=== PATIENT | female | born 1975 | race Hispanic/Latino ===

== ENCOUNTER 2018-08-05 10:56 | Day surgery (SDC) | payer BC, SELFPAY ==
[2018-07-30 11:20] VITALS: BP 117/84; PULSE 66; RESP 16; TEMP 36.8; O2SAT 100; BMI 28.9
--- NOTE | 2018-07-30 11:53 | SDCEKG_ITS ---
Test Reason : Blood Pressure : / mmHG Vent. Rate : 065 BPM Atrial Rate : 065 BPM P-R Int : 134 ms QRS Dur : 082 ms QT Int : 406 ms P-R-T Axes : 033 006 026 degrees QTc Int : 422 ms Normal sinus rhythm Normal ECG Confirmed by HUDSON TODD, THO ([id number]), editor magazine RADHA MUNOZ ([id number]) on 08/04/2018 8:33:41 AM Referred By: Pan Ashby Confirmed By:THO TREVIÑO MD
[2018-07-30 12:20] LABS: Hematocrit 37.2 % (37-47); Hemoglobin 12.3 g/dl (12.0-15.0); Mean Corp Hgb Conc 33.1 g/gl (32-36); Mean Corpuscular Hgb 29.4 pg (27.0-32.0); Mean Corpuscular Volume 88.8 fL (81-99); Mean Platelet Vol. 10.7 fl (6.2-12.0); Platelet Count 359 K/mm3 (150-450); RBC Distribution Width CV 15.3 % (11.6-14.6); RBC Distribution Width SD 49.3 fl (35.1-43.9); Red Blood Count 4.19 M/mm3 (4.2-5.4); White Blood Count 6.2 K/mm3 (4.4-11.0)
[2018-07-30 12:21] LABS: Scan Indicated on CBC? Y/N NO
[2018-07-30 12:44] LABS: Anion Gap 8 (5-15); BUN 11 mg/dL (7-18); BUN/Creat Ratio 15.5 RATIO (10-20); Calcium,Total 8.7 mg/dL (8.5-10.1); Chloride 105 mmol/L (98-107); Creatinine, Serum 0.71 mg/dL (0.55-1.02); EST Glomerular Filtration Rate 96 mL/min (>60); Est Glom Filt Rate - Afr Amer 117 mL/min (>60); Estimated Creatinine Clearance 90.04 ml/min; Glucose 87 mg/dL (74-106); Potassium 3.9 mmol/L (3.5-5.1); Sodium Level 139 mmol/L (136-145)
[2018-08-05] MEDS: Cefazolin 2 GM in 0.9% Normal Saline 100 ML IV (07:00)
[2018-08-05 11:25] VITALS: BP 110/83; PULSE 73; RESP 16; TEMP 36.9; O2SAT 100; BMI 28.9
--- NOTE | 2018-08-05 13:00 | HERN_PTH ---
PATIENT: AGUSTIN BANG V LOC: [facility] [place] U#:[id number] AGE/SX: 43/F ROOM: RE08/05/[address]: Dr. Pan Ashby MD : [id number] BED: DIS: 08/05/2018 SPEC #: [id number] RECD: 08/05/18 14:50 STATUS: RISHI JERSON #: [id number] JOB: 08/05/18 13:[address]: Pan Ashby DEPT: SURGICAL PATHOLOGY RECD BY: Graham Garza ENTERED: 08/06/18 04:57 SP TYPE: Hernia OTHR DR: Dr. Fransisco Gonzalez MD Tissues: HERNIA Procedures: Surgery Specimen Level II HEADER OPERATION: Umbilical hernia repair, mesh, poss lap inspection/assistance PRE-OP DIAGNOSIS: Incarcerated umbilical hernia TISSUE SUBMITTED: Hernia sac and contents MICROSCOPIC DIAGNOSIS Hernia sac and contents: A piece of fibroadipose and fibroconnective tissue, consistent with hernia sac and contents. SJ:daisy 08/06/18 MICROSCOPIC DESCRIPTION Slides are reviewed. GROSS DESCRIPTION Received in fixative is one container labeled with the patient's name and designated hernia sac and contents. The specimen consists of a piece of yellow adipose tissue measuring 3.5 x 3 x 1.5 cm. Sections do not reveal any mass lesion. Ram Car Operator sections are submitted in one cassette. / FLOYD:daisy 08/05/18 TC:5 [facility]: [id number]
--- NOTE | 2018-08-05 13:07 | PCM.DC.GS ---
Discharge Diet: Light diet - advance as tolerated - if you have questions about your diet instructions, please talk to you doctor. Discharge Activity: May Not Drive - for 1 week or while taking narcotic pain medicine. May shower in (days): 1 Lifting Restrictions: 10 pounds Call your doctor if your incision/area has: Continuous Slow Oozing, Sudden Increased Bleeding, Increased Pain/ Swelling, Increased Redness, Foul Smelling Discharge Call your doctor if you observe: Fever of 101 or Higher Suture Line Care: Avoid Pulling/Pushing, Avoid Pinching/Bending Additional Dressing/Incision Instructions:: Change or remove dressing in 4 days. Leave steri-strips in place for 1 week. Allergies/Adverse Reactions: Allergies No Known Allergies Allergy (Verified 07/30/18 11:18) Medications to take at Discharge ranitidine 150 mg tablet 150 mg PO BID tab 07/06/18 Hydrocodone Bitart/Apap 5-325 [[place] 5MG-325MG] 1 tablet PO Q6H PRN PRN 3 Days #8 tablet 08/05/18 The following prescriptions were given: Hydrocodone Bitart/Apap 5-325 [[place] 5MG-325MG] 1 tablet PO Q6H PRN PRN 3 Days #8 tablet PRN Reason: Pain Primary Care Physician: Fransisco Gonzalez MD [Primary Care Provider] - Test Results: Test results from this visit will be discussed in further detail at your follow-up appointment, if applicable. Please Follow Up With: Pan Ashby MD - [phone] When: Call to make an appointment to be seen in about 10 days.
--- NOTE | 2018-08-05 13:45 | PCM.OPRPT ---
Problem List (1) Incarcerated umbilical hernia Status: Acute Report of Operation Date of Procedure: 08/05/18 Pre-Operative Diagnosis: Incarcerated umbilical hernia Post-Operative Diagnosis: Same Surgery/Procedure Performed:: Umbilical herniorrhaphy with 6.[address] mesh. Reference #[id number]. Lot number [id number] at [id number]. Expiry date 11/05/2019 Description of Surgical Findings:: Timeout and informed consent was obtained. 43-year-old gent was taken the operative room. She was placed on the table. She underwent general endotracheal intubation anesthesia. Ancef 2 g given intravenously preoperatively. The abdomen was sterilely prepped and draped. A curvilinear incision was made in the superior aspect of the umbilicus sharp dissection identified a multilobulated incarcerated umbilical hernia with preperitoneal fat. The sac was carefully and tediously circumferentially dissected free. The fascial defect identified. The fascial defect measured approximately 1.5 cm in diameter. The sac and contents were carefully removed using electrocautery for hemostasis. A 6.[address] mesh was wetted and then inserted into the defect the mesh appeared to unfurl very nicely. The tails were then secured up to the abdominal wall with interrupted 0 Nurolon simple sutures. Good approximation was achieved. The mesh appeared to have a good flat apposition. Then using interrupted 0 Nurolon I performed a simple closure of the fascia with additional securement by catching a very small portion of the mesh. That suturing was then secured. The riley-incisional areas anesthetized with 0.5% Marcaine. A total 30 cc was used. Skin edges proximate up to 4 Monocryl subdermal sutures. Steri-Strips Telfa and OpSite dressings applied. Sponge and instrument and needle counts were reported to the surgeon to be correct. Blood loss was minimal. No apparent complication. She tired procedure well was taken to the recovery area in satisfactory condition. Specimens hernia sac and contents. Drains none. Blood loss minimal. Pan Ashby M.D., F.A.C.S. Type of Anesthesia:: General Anesthesiologist: Comfort Becker
[2018-08-05 13:49] VITALS: BP 110/83; BP 113/75; PULSE 104; RESP 16; TEMP 36.9; O2SAT 97
[2018-08-05 14:00] VITALS: BP 105/76; BP 110/83; PULSE 84; RESP 16; O2SAT 97
[2018-08-05 14:26] VITALS: BP 106/75; BP 110/83; PULSE 61; RESP 16; O2SAT 99
[2018-08-05 14:30] VITALS: BP 110/83; BP 112/79; PULSE 64; RESP 16; TEMP 36.6; O2SAT 100
[2018-08-05 15:41] VITALS: BP 109/78; BP 110/83; PULSE 59; RESP 16; TEMP 37.1; O2SAT 99
== END 2018-08-05 16:17 | disposition home or self-care (01) ==
LOC: SDC 10:57 → AC 10:58
PROVIDERS: Family Provider Family Medicine; PCP Family Medicine; Visit Provider Surgery
PROC: 0WQF4ZZ Repair Abdominal Wall, Percutaneous Endoscopic Approach (ICD-10-PCS; CPT 49587; principal; 2018-08-05 12:40)
DX: K42.0 Umbilical hernia with obstruction, without gangrene (principal)
CPT/HCPCS: 00830; 49587; 80048; 85027; 88302; 93005; C1781; J7120; J2405